=== PATIENT | female | born 2000 | race Hispanic/Latino ===

== ENCOUNTER 2021-04-03 19:43 | Emergency (ER) | payer OTHER ==
[~2021-04-03] VITALS: Ht 154.9 cm; Wt 131.0 kg
[2021-04-04] MEDS ORDERED: OXYCODONE/APAP 5MG/325MG(BULK FOR ED) 1 TABLET PO ONE (01:20)
[2021-04-04 01:58] VITALS: BP 118/61
== END 2021-04-04 02:00 | disposition home or self-care (01) ==
LOC: M ED 19:43
DX: T23.201A Burn of second degree of right hand, unspecified site, initial encounter (principal); T24.211A Burn of second degree of right thigh, initial encounter; T31.0 Burns involving less than 10% of body surface; X10.1XXA Contact with hot food, initial encounter; Y92.009 Unspecified place in unspecified non-institutional (private) residence as the place of occurrence of the external cause; Y93.89 Activity, other specified; Y99.9 Unspecified external cause status; Z3A.00 Weeks of gestation of pregnancy not specified

== ENCOUNTER → 2021-07-12 | Outpatient (CLI) | payer OTHER ==
--- NOTE | 2021-07-13 06:01 | REP ---
INDICATION: PREG, F/U ANATOMY COMPARISON: None. TECHNIQUE: Transabdominal obstetrical ultrasound with color Doppler evaluation. FINDINGS: Examination demonstrates a single live intrauterine in cephalic presentation. motion is identified by technologist. Placenta is noted anterior and grade 1 without evidence for placenta previa or abruption. Amniotic fluid volume is low normal range. Cervix appears closed. Selected gestational age: 29 weeks 2 days with RAUL 09/25/2021. Gestational age by current measurements 31 weeks 0 days with RAUL 09/13/2021. FHR equals 157 beats per minute. NATHAN: 8.1 cm (9.1-23.2) Estimated weight 1714 grams (greater than 97thpercentile). Anatomical assessment demonstrates normal structures including cranium, choroid plexus, cavum, cerebellum/posterior fossa, orbits, nose/lips, lungs, four-chamber heart/left ventricular outflow tract, diaphragm, stomach, cord insertion/three-vessel cord, kidneys/bladder, spine, and extremities. Limited evaluation of the facial profile and right cardiac ventricular outflow tract. IMPRESSION: 1. Single live intrauterine demonstrating greater than expected interval growth and greater than expected estimated weight. 2. Anatomical limitations as noted above. 3. Amniotic fluid index is mildly below normal range. <Electronically signed by Les Obrien > 07/13/21 2116
== END ==
LOC: M RAD 13:21
PROVIDERS: ATTEND Nurse Practitioner Women's Health
DX: Z34.82 Encounter for supervision of other normal pregnancy, second trimester (principal); Z3A.29 29 weeks gestation of pregnancy

== ENCOUNTER 2021-09-12 01:14 | Inpatient (IN) | payer OTHER ==
[~2021-09-12] VITALS: Ht 157.5 cm; Wt 68.0 kg
[2021-09-12] VITALS (58 sets, daily range): BP systolic 88–144; BP diastolic 54–96
[2021-09-12] MEDS ORDERED: HOME MED LIST COMPLETE! XX SCH (01:30)
[2021-09-12] MEDS ORDERED: PENICILLIN G POTASSIUM IV 5 MU in D5W MINI-BAG PLUS 100 ML IV STA (02:38)
[2021-09-12] MEDS ORDERED: LACTATED RINGER'S 1000 ML IV STA (02:38)
[2021-09-12] MEDS ORDERED: LIDOCAINE 1% MDV 20ML VIAL INFIL PRN (02:40)
[2021-09-12] MEDS ORDERED: OXYTOCIN DRIP 30 UNITS in IV 1 EA IV SCH ×2 (02:40→22:35)
[2021-09-12] MEDS ORDERED: CARBOPROST TROMETHAMINE 250 MCG/ML AMP IM PRN (02:40)
[2021-09-12] MEDS ORDERED: METHYLERGONOVINE MALEATE 0.2 MG/ML VIAL (J2210) IM PRN (02:40)
[2021-09-12] MEDS ORDERED: LR 1,000 ML IV SCH (02:40)
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
[2021-09-12 03:43] LABS: HEMATOCRIT 36.2 % (36.0-47.0); HEMOGLOBIN 12.3 g/dl (12.0-15.5); MEAN CORPUSCULAR HEMOGLOBIN 28.4 pg (27.0-33.0); MEAN CORPUSCULAR VOLUME 83.6 fl (80.0-96.0); PLATELET COUNT, AUTOMATED 309 10^3/uL (150-450); RED BLOOD COUNT 4.33 10^6/uL (4.00-5.40); WHITE BLOOD COUNT 9.1 10^3/uL (4.0-10.0)
[2021-09-12] MEDS: LR 1,000 ML IV SCH ×4 (05:16→20:08)
[2021-09-12] MEDS ORDERED: PENICILLIN G POTASSIUM IV 2.5 MU in IV 1 EA IV SCH (07:30)
[2021-09-12] MEDS: PENICILLIN G POTASSIUM IV 2.5 MU in IV 1 EA IV SCH ×4 (08:08→20:18)
[2021-09-12] MEDS ORDERED: **PENDING PCN ENTRY XX SCH (09:00)
--- NOTE | 2021-09-12 11:23 | IPNPDOC ---
Text Note Date of Service The patient was seen on 09/12/21. NOTE Presented to room for assessment of progress. Joey reports feeling continued contraction pain. Chaperoned by RN Cervix: 1-2/-1. Clear fluid draining. FHR tracing - Cat I with moderate variability and +accels. No decels. Ctx Q2-4 mins. Pitocin at 12mU. Minimal change thus far, though cervix is very soft and baby has descended into the pelvis. She is receiving abx for GBS prophylaxis and has gotten two doses. Will continue with pitocin. Patient may have IV analgesia and/or an epidural as desired. All questions answered. Sage VS,Mame, I+O VS, Mame, I+O Laboratory Tests 09/12/21 03:27 Vital Signs Date Time Temp Pulse Resp B/P (MAP) Pulse Ox O2 Delivery O2 Flow Rate FiO2 09/12/21 07:32 97.7 74 18 110/78 (89) 09/12/21 05:17 98 Room Air NEISHA LAWLER DO Sep 12, 2021 11:23
[2021-09-12] MEDS ORDERED: PROMETHAZINE INJ 25 MG/ML VIAL (J2550) IV ONE (15:20)
[2021-09-12] MEDS ORDERED: BUTORPHANOL 2 MG/ML INJ (J0595) IV ONE (15:20)
--- NOTE | 2021-09-12 17:31 | IPNPDOC ---
Text Note Date of Service The patient was seen on 09/12/21. NOTE Patient feeling significantly more pain with contractions, despite stadol and phenergan. Chaperoned by RN Cervix: /-1. FHR tracing - Moderate variability, +accels, +early decels. Overall reassuring. Ctx regular. Pitocin at 20mU. Joey is considering an epidural. IV fluid bolus initiated. Sage VSMame, I+O VS, Mame I+O Laboratory Tests 09/12/21 03:27 Vital Signs Date Time Temp Pulse Resp B/P (MAP) Pulse Ox O2 Delivery O2 Flow Rate FiO2 09/12/21 16:51 97.1 76 16 118/58 (78) 09/12/21 05:17 98 Room Air NEISHA LAWLER DO Sep 12, 2021 17:31
[2021-09-12] MEDS ORDERED: NALOXONE INJ 0.4MG/1ML VIAL (J2310 PER 1MG) IV PRN (18:30)
[2021-09-12] MEDS ORDERED: LACTATED RINGER'S 1000 ML IV PRN (18:30)
[2021-09-12] MEDS ORDERED: ONDANSETRON 4MG/2ML VIAL IV PRN (18:30)
[2021-09-12] MEDS ORDERED: EPIDURAL COMMENT XX SCH (18:30)
[2021-09-12] MEDS ORDERED: EPIDURAL/PCA KEYS XX PRN (18:30)
[2021-09-12] MEDS ORDERED: FENTANYL/ROPIVACAINE/NACL BAG 100 ML EPIDURAL SCH (18:30)
[2021-09-12] MEDS ORDERED: REFRIGERATOR IV KEYS XX PRN (18:30)
[2021-09-12] MEDS ORDERED: diphenhydrAMINE 50MG/ML VIAL (J1200) IV PRN (18:30)
[2021-09-12] MEDS: ePHEDrine SULFATE 25 MG/5 ML(5MG/ML) SYRINGE IV PRN ×2 (20:49→21:19)
[2021-09-12] MEDS ORDERED: OXYTOCIN 30 UNITS IN 0.9% NaCl 500ML IV BAG (J2590) As Ordered ONE (22:18)
[2021-09-12] MEDS ORDERED: IBUPROFEN 600MG TAB PO PRN (22:35)
[2021-09-12] MEDS ORDERED: IBUPROFEN 800 MG TAB PO PRN (22:35)
[2021-09-12] MEDS ORDERED: RHOGAM 300 MCG (1500 IU) INJ (J2790) IM SCH (22:35)
[2021-09-12] MEDS ORDERED: DIBUCAINE 1% OINTMENT 30GM TOP PRN (22:35)
[2021-09-12] MEDS ORDERED: DOCUSATE SODIUM 100MG CAPSULE PO PRN (22:35)
[2021-09-12] MEDS ORDERED: MEASLES,MUMPS,RUBELLA VACCINE INJ (MMR-II) (90707) SC SCH (22:35)
[2021-09-12] MEDS ORDERED: PROMETHAZINE 25 MG TAB PO PRN (22:35)
[2021-09-12] MEDS ORDERED: ACETAMINOPHEN TAB 650MG DOSE (2X325MG) PO PRN (22:35)
--- NOTE | 2021-09-12 22:46 | DNPDOC ---
[facility] Delivery Note Delivery Note DATE OF DELIVERY: 12Sep2021 at ~2210 PREDELIVERY DIAGNOSIS: 38+1 weeks gestation and IOL for prelabor rupture of membranes POST DELIVERY DIAGNOSIS: Delivered. PROCEDURE: Spontaneous vaginal delivery DIRECTOR OF EARLY CHILDHOOD EDUCATION: Neisha Cazares DO, FACOG ANESTHESIA: Epidural ESTIMATED BLOOD LOSS: 300 FINDINGS: 7 pound 0 ounces (3170 grams) male infant, bandolier cord, Score 8/9 DELIVERY SUMMARY: Joey is a 21 yo who presented with prelabor rupture of membranes at 38+1 weeks gestation. She progressed with pitocin into active labor and received an epidural. She entered into 2nd stage and began pushing. With excellent effort over about 40 minutes of pushing her baby delivered. Presentation was ALEX with restitution to ROT. The left anterior shoulder delivered with gentle traction followed easily by the remainder of the body. A tight bandolier cord was delivered through and reduced manually. The infant was dried and stimulated and a bulb suction was used. The infant was then placed on the maternal abdomen and cried vigorously. The three vessel umbilical cord was then clamped and cut by the FOB after appropriate time delay and under my direction. Third stage was completed with gentle traction on on the cord and it was productive of an intact placenta. The uterus was firmed with massage and pitocin was administered IV bolus. Inspection of the cervix, vagina, labia, and perineum revealed a midline 2nd degree laceration. This was repaired with 3-0 monocryl suture in the usual fashion. There was excellent cosmesis and hemostasis after the repair. The fundus was palpated again and was firm. Sponge, instrument, and needle counts were correct X2. Mother and infant stable when I left the room. NEISHA Lujan DO Sep 12, 2021 22:46
[2021-09-13 00:30] VITALS: BP 124/66
[2021-09-13 06:00] VITALS: BP 93/52
--- NOTE | 2021-09-13 07:12 | IPNPDOC ---
Progress Note Date of Service: Sep 13, 2021 Progress Note Joey is a 21 yo G1 now P1 who underwent an uncomplicated last night after being admitted for prelabor rupture of membranes. No acute events overnight. Joey is sleeping soundly in bed this morning. Baby rooming in with mother. Vitals - VSS, afebrile, normotensive, non tachycardic General - sleeping in bed UO - excellent Overall Joey is doing well and is making an appropriate recovery. No issues. Plan for discharge tomorrow if meeting all criteria. Sage VS, I&O, 24H, Mame Vital Signs/I&O Vital Signs Date Time Temp Pulse Resp B/P (MAP) Pulse Ox O2 Delivery O2 Flow Rate FiO2 09/13/21 06:00 97.7 79 18 93/52 (66) 09/13/21 00:30 97 Room Air I&O- Last 24 Hours up to 6 AM 09/13/21 06:00 Intake Total 6398.5 ml Output Total 3325 ml Balance 3073.5 ml Laboratory Data 24H LABS Laboratory Tests 2 09/12/21 07:51: Serology Scanned Report Hepatitis B Testing NEISHA LAWLER DO Sep 13, 2021 07:11
[2021-09-13] MEDS: PRENATAL VITAMINS CHEWABLE TABLET PO SCH (08:32)
[2021-09-13] MEDS: LR 1,000 ML IV SCH ×2 (10:40→18:40)
--- NOTE | 2021-09-13 11:51 | IPN ---
PROGRESS NOTE DATE: 09/13/2021 This patient and her requested circumcision of their male . After discussing risks and benefits of circumcision, the medical, the non-medical indications, the penile block and aftercare, expressed understanding of penile block, aftercare and bleeding, signed the consent form. All questions were answered, 20-minute discussion. We await clearance by the credit review officer.
[2021-09-13] MEDS: ACETAMINOPHEN 500 MG TAB PO PRN (15:10)
[2021-09-13 18:00] VITALS: BP 102/55
[2021-09-14] MEDS: LR 1,000 ML IV SCH (02:40)
[2021-09-14 06:00] VITALS: BP 100/56
--- NOTE | 2021-09-14 07:39 | OBDS ---
[facility] Obstetrical Discharge Sum. Obstetrical Discharge Summary Date: Sep 14, 2021 : 1 Term: 1 Abortions: 1 VDRL: ABO Blood Group (o) Rh: Positive Rubella: Immune A/P, Post Course List any complications DATE OF DELIVERY: 12Sep2021 at ~2210 PREDELIVERY DIAGNOSIS: 38+1 weeks gestation and IOL for prelabor rupture of membranes POST DELIVERY DIAGNOSIS: Delivered. PROCEDURE: Spontaneous vaginal delivery MISSION MANAGER: Vj Cazares DO, FACOG ANESTHESIA: Epidural ESTIMATED BLOOD LOSS: 300 FINDINGS: 7 pound 0 ounces (3170 grams) male infant, bandolier cord, Score 8/9 Condition at Discharge: stable Discharge Instructions: Home Activity: Pelvic rest Diet: regular Medications: at [place] Follow-up: 6wk pp Other: SRI LOVE MD Sep 14, 2021 06:24
[2021-09-14] MEDS ORDERED: IBUP80TA PO (07:40)
[2021-09-14] MEDS ORDERED: ACET-683 PO (07:40)
[2021-09-14] MEDS: PRENATAL VITAMINS CHEWABLE TABLET PO SCH (07:59)
[2021-09-14] MEDS: ACETAMINOPHEN 500 MG TAB PO PRN (08:08)
== END 2021-09-14 12:04 | disposition home or self-care (01) | DRG 807 ==
LOC: M LDO 01:14 → M LDI 02:37 → M PED 09-13 00:17
PROVIDERS: ADMIT Obstetrics & Gynecology; ATTEND Obstetrics & Gynecology
PROC: 10E0XZZ Delivery of Products of Conception, External Approach (ICD-10-PCS; principal; 2021-09-12)
PROC: 0KQM0ZZ Repair Perineum Muscle, Open Approach (ICD-10-PCS; 2021-09-12)
PROC: 3E033VJ Introduction of Other Hormone into Peripheral Vein, Percutaneous Approach (ICD-10-PCS; 2021-09-12)
DX: O42.02 Full-term premature rupture of membranes, onset of labor within 24 hours of rupture (principal); Z37.0 Single live birth; Z3A.38 38 weeks gestation of pregnancy; O99.824 Streptococcus B carrier state complicating childbirth; O69.2XX0 Labor and delivery complicated by other cord entanglement, with compression, not applicable or unspecified; O70.1 Second degree perineal laceration during delivery